=== PATIENT | male | born 1970 | race Native Hawaiian/Other Pacific Islander ===

== ENCOUNTER 2023-03-31 10:17 | Outpatient (CLI) | payer OTHER ==
[2023-03-31 11:09] LABS: POTASSIUM 4.1 mmol/L (3.6-5.2)
== END 2023-03-31 17:00 | disposition home or self-care (01) ==
LOC: RAD 10:17
PROVIDERS: ATTEND Physician Assistant
DX: R22.41 Localized swelling, mass and lump, right lower limb (principal); R53.83 Other fatigue
CPT/HCPCS: 36415; 80053

== ENCOUNTER 2023-04-13 08:51 | Outpatient (CLI) | payer OTHER | END 2023-04-13 18:57 | disposition home or self-care (01) | LOC: RESP 08:51 | PROVIDERS: ATTEND Physician Assistant | DX: M79.89 Other specified soft tissue disorders (principal); R22.31 Localized swelling, mass and lump, right upper limb ==